=== PATIENT | female | born 1980 | race Hispanic/Latino ===

== ENCOUNTER 2016-07-06 12:42 | Emergency (ER) | payer OTHER ==
[~2016-07-06] VITALS: Ht 154.9 cm; Wt 52.2 kg
--- NOTE | 2016-07-06 13:17 | ED HEADACHE COMPLAINT ---
History of Present Illness General Chief Complaint: Headache Stated Complaint: CARDOZA X MONTHS, COMES AND GOES Vital Signs & Intake/Output Vital Signs & Intake/Output Vital Signs Date Time Temp Pulse Resp B/P B/P Pulse O2 O2 Flow FiO2 Mean Ox Delivery Rate 07/06 1246 97.1 86 16 99 Room Air Allergies Coded Allergies: NO KNOWN ALLERGIES (09/28/11) Triage Note: 36 Y/O FEMALE C/O FEW MONTH HISTORY HEADACHES; STATES HEADACHES COME AND GO - PRESENT WHEN SHE WAKES UP IN THE MORNING. PT REPORTS INTERMITTENT PHOTOPHOBIA AND NAUSEA WELL. FELT DIZZY LAST WEEK DURING EPISODE OF HEADACHE. HAS BEEN TAKING MOTRIN WITH NO RELIEF. SPEAKING CLEARLY WITH NO DEFICITS NOTED. 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
--- NOTE | 2016-07-06 13:21 | ED GENERAL ADULT ---
History of Present Illness General Chief Complaint: Headache Stated Complaint: CARDOZA X MONTHS, COMES AND GOES Source: patient Exam Limitations: no limitations Vital Signs & Intake/Output Vital Signs & Intake/Output Vital Signs Date Time Temp Pulse Resp B/P B/P Pulse O2 O2 Flow FiO2 Mean Ox Delivery Rate 07/06 1638 97.3 75 18 162/102 99 Room Air 07/06 1630 75 1162/10 07/06 1457 98.1 73 15 160/90 100 Room Air 07/06 1349 99 Room Air 07/06 1246 97.1 86 16 99 Room Air Allergies Coded Allergies: NO KNOWN ALLERGIES (09/28/11) Reconcile Medications Butalb/Acetaminophen/Caffeine (Fioricet 50-300-40 MG Capsule) 50 MG-300 MG-40 MG CAPSULE 2 TAB PO Q8 PRN PAIN Levonorgestrel (Mirena) 20 MCG/24 HOUR (5 YEARS) IUD CONTROL (Reported) Lisinopril (Prinivil) 10 MG TABLET 1 TAB PO DAILY HTN Triage Note: 36 Y/O FEMALE C/O FEW MONTH HISTORY HEADACHES; STATES HEADACHES COME AND GO - PRESENT WHEN SHE WAKES UP IN THE MORNING. PT REPORTS INTERMITTENT PHOTOPHOBIA AND NAUSEA WELL. FELT DIZZY LAST WEEK DURING EPISODE OF HEADACHE. HAS BEEN TAKING MOTRIN WITH NO RELIEF. SPEAKING CLEARLY WITH NO DEFICITS NOTED. Triage Nurses Notes Reviewed? yes Onset: Abrupt Duration: week(s): Timing: recent history : No Patient currently breastfeeds: No HPI: 07/06/16 4 pm 36-year-old female presents to the emergency department complaining of occipital headache. The patient states she's had headache intermittently for the past 3 months. She says she gets photophobia with the headaches. They come and go. The headaches are occipital and sometimes bifrontal. The onset of the symptoms were abrupt, the duration has been intermittent for months, the severity is significant; as her symptoms required to come to the emergency department for care. She has associated headache and photophobia. She denies any fever or rash or tick bite. She has no significant past medical other than related hypertension. No significant past surgical history. No known drug allergies. Past History Travel History Traveled to [place] past 21 day No Medical History Any Pertinent Medical History? 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 No Review of Systems Review of Systems Constitutional: Denies: fever. EENTM: Denies: visual changes. Respiratory: Denies: short of breath. Cardiovascular: Denies: chest pain. GI: Denies: abdominal pain. Genitourinary: Reports: no symptoms. Musculoskeletal: Reports: no symptoms. Skin: Reports: no symptoms. Neurological/Psychological: Reports: no symptoms. Hematologic/Endocrine: Reports: no symptoms. Physical Exam Physical Exam General Appearance: well developed/nourished, alert, awake, anxious, mild distress Head: atraumatic, normal appearance, no papilledema Eyes: Bilateral: normal appearance, PERRL, EOMI. Ears, Nose, Throat: normal pharynx, normal ENT inspection Neck: normal inspection, supple, full range of motion Respiratory: normal breath sounds, chest non-tender, no respiratory distress Cardiovascular: regular rate/rhythm Peripheral Pulses: 4+ radial (R), 4+ radial (L) Gastrointestinal: soft, non-tender Back: normal range of motion Extremities: normal inspection, no edema Neurologic/Psych: no motor/sensory deficits, awake, alert, oriented x 3 Skin: intact, normal color, warm/dry Core Measures ACS in differential dx? No CVA/TIA Diagnosis: No Severe Sepsis Present: No Septic Shock Present: No Progress Differential Diagnoses I considered the following diagnoses in my evaluation of the patient: [ Hypertension, migraine headaches, subarachnoid hemorrhage, pseudotumor cerebri] Plan of Care: Orders Procedure Date/time Status Saline Lock 07/06 1322 Active Initial ED EKG: none Departure Departure Disposition: HOME OR SELF CARE Condition: Stable Clinical Impression Primary Impression: Migraine headache Secondary Impressions: Hypertension Referrals: PATIENT HAS NO PRIMARY CARE DR (PCP/Family) Departure Forms: Customer Survey General Discharge Information Prescriptions: Current Visit Scripts Lisinopril (Prinivil) 1 TAB PO DAILY #20 TAB Butalb/Acetaminophen/Caffeine (Fioricet 50-300-40 MG Capsule) 2 TAB PO Q8 PRN PAIN #10 Comments The patient's headaches resolved with IV Toradol and IV Phenergan. She did receive IV fluids and her blood pressure actually increased. She was started on lisinopril and will follow up with a [facility] practice physician this week. She was also placed on Fioricet for the pain as needed. She will return if worse. Critical Care Note Critical Care Note Critical Care Time: non-applicable
--- NOTE | 2016-07-06 14:27 | CT SCAN REPORT ---
EXAMINATION: CT HEAD WITHOUT CONTRAST CLINICAL INFORMATION: Headache. COMPARISON: No relevant prior imaging is available. TECHNIQUE: Contiguous axial imaging was performed from the skull base to vertex without intravenous administration of contrast. DLP: 609.3 mGy-cm FINDINGS: There is no acute intracranial hemorrhage or abnormal extra-axial collection. No intracranial mass effect or midline shift. Lateral and third ventricles are normal. No hydrocephalus. Moore-white matter differentiation is preserved and there is no evidence of acute territorial infarct. The calvarium and skull base are intact. Mastoid air cells and middle ear cavities are well aerated. Visualized paranasal sinuses are well-aerated. IMPRESSION: Normal CT scan of the head.
[2016-07-06] MEDS ORDERED: MIRENA1 EACH (15:28)
[2016-07-06] MEDS ORDERED: FIORICET 50-301 EACH PO (16:03)
[2016-07-06] MEDS ORDERED: PRINIVIL10 M1 PO (16:03)
[2016-07-06 16:38] VITALS: BP 162/102
== END 2016-07-06 16:40 ==
LOC: ERH 12:42
DX: G43.909 Migraine, unspecified, not intractable, without status migrainosus (principal); I10 Essential (primary) hypertension
CPT/HCPCS: 96374; 96375; J1885; J2550